=== PATIENT | female | born 2005 | race Caucasian/White ===

== ENCOUNTER 2024-03-06 10:27 | Emergency (ER) | payer OTHER | END 2024-03-06 12:20 | disposition home or self-care (01) | LOC: CSHERS 10:27 | DX: S92.342A Displaced fracture of fourth metatarsal bone, left foot, initial encounter for closed fracture (principal); S92.352A Displaced fracture of fifth metatarsal bone, left foot, initial encounter for closed fracture; X58.XXXA Exposure to other specified factors, initial encounter | CPT/HCPCS: 28470 ==